=== PATIENT | male | born 1970 | race Hispanic/Latino ===

== ENCOUNTER 2017-07-18 23:39 | Emergency (ER) | payer BC ==
[~2017-07-18] VITALS: Ht 170.2 cm; Wt 104.8 kg
[2017-07-19] MEDS ORDERED: PANTOPRAZOLE 40 MG 10ML VIAL IV STA (00:13)
[2017-07-19] MEDS ORDERED: SODIUM CHLORIDE 0.9% 1000ML 1,000 ML IV STA (00:13)
[2017-07-19] MEDS ORDERED: PANTOPRAZOLE 40 MG 10ML VIAL ONE (00:14)
[2017-07-19] MEDS ORDERED: ONDANSETRON HCL 4 MG ORAL DISINTEGRATING TAB ONE (00:14)
[2017-07-19] MEDS ORDERED: SODIUM CHLORIDE 0.9% 1000ML 1,000 ML ONE (00:15)
[2017-07-19] MEDS ORDERED: ONDANSETRON HCL 4 MG ORAL DISINTEGRATING TAB PO ONE (00:15)
[2017-07-19 01:18] LABS: BASOPHILS # (AUTO) 0.1 (0.0-0.1); BASOPHILS % 0.5 % (0.0-1.0); EOSINOPHILS # (AUTO) 0.1 (0.0-0.4); EOSINOPHILS % 1.1 % (0.0-6.0); HEMATOCRIT 45.4 % (38.2-49.6); LYMPHOCYTES # (AUTO) 1.4 (1.0-3.2); LYMPHOCYTES % 14.7 % (18.0-39.1); MEAN CORPUSCULAR HEMOGLOBIN 28.6 pg (28-32); MEAN CORPUSCULAR VOLUME 86.5 fL (81-99); MONOCYTES # (AUTO) 0.6 (0.2-0.8); MONOCYTES % 6.4 % (4.4-11.3); NEUTROPHILS # (AUTO) 7.4 (2.1-6.9); PLATELET COUNT 320 x10e3/uL (140-360); RED BLOOD COUNT 5.25 x10e6/uL (4.3-5.7); RED CELL DISTRIBUTION WIDTH 14.4 % (11.7-14.4)
[2017-07-19 01:28] LABS: INR 0.98; PROTHROMBIN TIME 12.2 seconds (11.9-14.5)
[2017-07-19 01:38] LABS: ALANINE AMINOTRANSFERASE 22 IU/L (0-55); ALBUMIN/GLOBULIN RATIO 0.8 (0.8-2.0); ALKALINE PHOSPHATASE 71 IU/L (40-150); BLOOD UREA NITROGEN 23 mg/dL (7-26); BUN/CREATININE RATIO 16 (6-25); CALCIUM 9.3 mg/dL (8.4-10.2); CARBON DIOXIDE 24 mmol/L (22-29); CREATINE KINASE 217 IU/L (30-200); CREATININE, SERUM 1.41 mg/dL (0.72-1.25); EST GLOMERULAR FILTRATION RATE 55 ML/MIN (60-); GLUCOSE 267 mg/dL (74-118)
--- NOTE | 2017-07-19 01:40 | Diagnostic Imaging Report ---
CHEST SINGLE (PORTABLE), 07/19/2017 12:13 AM Technique: CHEST SINGLE (PORTABLE) Comparison: None available. Clinical history: \S\ELEV BG \[id number] \S\0105 Findings: See Impression Impression: 1. Mildly enlarged cardiac silhouette, accentuated by portable technique. 2. No consolidation or edema. 3. No pleural effusion or pneumothorax. Signed by: Dr Katherine Sanches MD on 07/19/2017 1:36 AM
[2017-07-19 01:50] LABS: ANION GAP 14.1 mmol/L (8-16); CHLORIDE 103 mmol/L (98-107); MAGNESIUM 2.1 MG/DL (1.3-2.1); POTASSIUM 4.1 mmol/L (3.5-5.1); SODIUM 136 mmol/L (136-145)
[2017-07-19] MEDS ORDERED: INSULIN LISPRO 100 UNIT/1 ML 3ML VIAL SQ STA (03:48)
[2017-07-19] MEDS ORDERED: SODIUM CHLORIDE 0.9% 500ML 500 ML IV ONE (04:00)
[2017-07-19 06:05] VITALS: BP 117/81
== END 2017-07-19 06:24 | disposition home or self-care (01) ==
LOC: ER 23:39
DX: R11.2 Nausea with vomiting, unspecified (principal); E11.65 Type 2 diabetes mellitus with hyperglycemia; Z96.41 Presence of insulin pump (external) (internal); K21.9 Gastro-esophageal reflux disease without esophagitis; Z88.8 Allergy status to other drugs, medicaments and biological substances
CPT/HCPCS: 36415; 71045; 80053; 82550; 82553; 82948; 83735; 84484; 85025; 85610; 85730; 93005; 96374; 99283; J7030; J7040; 36600

== ENCOUNTER 2017-12-10 05:05 | Inpatient (IN) | payer BC ==
[2017-12-09 11:34] LABS: BASOPHILS # (AUTO) 0.1 (0.0-0.1); BASOPHILS % 0.7 % (0.0-1.0); EOSINOPHILS # (AUTO) 0.4 (0.0-0.4); EOSINOPHILS % 4.4 % (0.0-6.0); HEMATOCRIT 44.7 % (38.2-49.6); HEMOGLOBIN 14.8 g/dL (14.0-18.0); LYMPHOCYTES # (AUTO) 2.1 (1.0-3.2); LYMPHOCYTES % 23.5 % (18.0-39.1); MEAN CORPUSCULAR HEMOGLOBIN 29.5 pg (28-32); MEAN CORPUSCULAR HGB CONC 33.1 g/dL (31-35); MONOCYTES # (AUTO) 0.7 (0.2-0.8); MONOCYTES % 8.4 % (4.4-11.3); NEUTROPHILS # (AUTO) 5.5 (2.1-6.9); NEUTROPHILS % 62.7 % (38.7-80.0); PLATELET COUNT 284 x10e3/uL (140-360); RED BLOOD COUNT 5.02 x10e6/uL (4.3-5.7); RED CELL DISTRIBUTION WIDTH 14.3 % (11.7-14.4)
[2017-12-09 12:08] LABS: ANION GAP 13.8 mmol/L (8-16); CALCIUM 9.6 mg/dL (8.4-10.2); CREATININE, SERUM 1.36 mg/dL (0.72-1.25); POTASSIUM 3.8 mmol/L (3.5-5.1)
[~2017-12-10] VITALS: Ht 180.3 cm; Wt 97.3 kg
[~2017-12-10 05:05] MED LIST: ANASTROZOLE1 MG PO; DIOVAN80 MG PO; HYDROXYZINE HCL25 MG PO; INSULIN PUMP; OMEPRAZOLE40 MG PO; RANITIDINE HCL150 MG PO; TESTOSTERONE
--- OUTSIDE RECORDS SUMMARY | 2017-12-10 05:16 | XMS REPORT ---
Author Author [facility] Address Unknown Phone Unavailable Care Team Providers Care Film Cleaner Name Role Phone Willow ENGLISH Unavailable Unavailable Problems This patient has no known problems. Allergies, Adverse Reactions, Alerts This patient has no known allergies or adverse reactions. Medications This patient has no known medications. Results Test Description Test Time Test Comments Text Results Atomic Results Result Comments CHEST SINGLE (PORTABLE) [place] [address] Patient Name: HARMAN FERREIRA MR #: [id number] : 1970 Age/Sex: 46/M Req #: [id number] Adm Physician: Ordered by: OSCAR ENGLISH MD Report #: [id number] Location: ER Room/Bed: Procedure: [id number] DX/CHEST SINGLE (PORTABLE) Exam Date: 07/19/17 Exam Time: 104 REPORT STATUS: Signed CHEST SINGLE (PORTABLE), 07/19/2017 12:13 AM Technique: CHEST SINGLE (PORTABLE) Comparison: None available. Clinical history: S ELEV BG S [id number] S 104 Findings: See Impression Impression: 1. Mildly enlarged cardiac silhouette, accentuated by portable technique. 2. No consolidation or edema. 3. No pleural effusion or pneumothorax. Signed by: Dr Jimenez Sanches MD on 07/19/2017 1:36 AM Dictated By: JIMENEZ SANCHES MD 5 Transcribed By: TRACY on 07/19/17135 COPY TO: OSCAR ENGLISH MD
[2017-12-10] MEDS ORDERED: CEFOXITIN SOD 1 GM VIAL ONE (05:17)
[2017-12-10] MEDS ORDERED: FAMOTIDINE 20 MG/2 ML VIAL IV ONE (06:34)
[2017-12-10] MEDS ORDERED: SCOPOLAMINE 1.5 MG PATCH ONE (06:47)
[2017-12-10] MEDS ORDERED: ACETAMINOPHEN 1000 MG/100 ML 100 ML IV ONE (06:47)
[2017-12-10] MEDS ORDERED: BUPIVACAINE HCL 0.5% INJ 30 ML VIAL INJ ONE (06:48)
[2017-12-10] MEDS ORDERED: NALOXONE HCL INJ 0.4 MG/ML AMP IV PRN (08:30)
[2017-12-10] MEDS ORDERED: ACETAMINOPHEN 1000 MG/100 ML IV PRN (08:30)
[2017-12-10] MEDS ORDERED: KETOROLAC TROMETHAMINE 30 MG/ML VIAL IV PRN (08:30)
[2017-12-10] MEDS ORDERED: DIPHENHYDRAMINE HCL INJ 50 MG/ML VIAL IM PRN (08:30)
[2017-12-10] MEDS ORDERED: HYDROMORPHONE 2MG/ML 2 MG/ML ML ONE (08:44)
[2017-12-10] MEDS: HYDROMORPHONE 0.2MG/ML-SOD CHL 30ML PCA SYRINGE IV PRN (08:52)
--- NOTE | 2017-12-10 09:13 | Operative Report ---
DATE OF PROCEDURE: December 10, 2017 PREOPERATIVE DIAGNOSIS: Dysplastic cecal polyp. POSTOPERATIVE DIAGNOSIS: Dysplastic cecal polyp. PROCEDURE: Laparoscopic-assisted right colon resection. BUYING AGENT: None. ANESTHESIA: General. INDICATIONS AND FINDINGS: The patient is a 47-year-old male, who previously had a colonoscopy, who had a large polyp removed from the cecum, was found to have high-grade dysplasia on pathology. At surgery, there was no mass palpable in the cecum. There was some area of induration at the site of the polypectomy site, which was removed. There were no enlarged lymph nodes noted. There was no mass in the liver. TECHNIQUE: After adequate general endotracheal anesthesia with the patient in supine position, the abdomen was prepped and draped in sterile fashion with Salina solution. Skin in the umbilicus was infiltrated with 0.5% Marcaine. An incision was made in the umbilicus. The abdominal wall was elevated, and Veress needle was introduced. Pneumoperitoneum was then created. A 5-mm trocar and cannula were then passed through this wound. Laparoscopic camera was introduced. Initial laparoscopy revealed no mass. There was no free fluid. The liver appeared normal. Stomach appeared normal, somewhat obscured by omentum. A 5-mm trocar and cannula were placed in the epigastrium and a second 5-mm trocar and cannula placed also in the right upper quadrant just to the right of midline. The right colon was mobilized by divided peritoneal attachments. Omentum was dissected away from the right transverse colon. Colon was mobilized completely from lateral to medial. Care was taken not to injure the ureter. Once the colon was completely mobilized, a transverse incision was made in the right upper quadrant just above the level of the umbilicus. The peritoneal cavity was entered. The colon into the wound. There was no mass palpable within the cecum. Terminal ileum was divided with ANGELA stapler. The ascending colon above the cecum just proximal to hepatic flexure was also divided with ANGELA stapler. The mesentery was then divided with LigaSure device and the specimen removed. The specimen was opened and there was area of induration and scarring suggesting where the polypectomy had done. This was just adjacent to the appendiceal orifice. Anastomosis was made between the terminal ileum and the colon with a ANGELA stapler and TL-60 stapler. The mesenteric defect was closed with 3-0 Vicryl. Hemostasis was seen to be adequate. The peritoneal cavity was irrigated with saline. All fluid aspirated and inspected for hemostasis, which was seen to be adequate. The fascia in the larger wound was closed with running suture of #1 PDS. Subcutaneous tissue was irrigated with saline. Skin to all wounds closed with naveed. Sterile dressings were applied to each wound. The patient tolerated the procedure well. Estimated blood loss was 75 mL. There were no complications. All counts were correct. The patient was taken to the recovery room in satisfactory condition. Job#: [id number]
[2017-12-10 10:24] VITALS: BP 135/73
[2017-12-10] MEDS: CEFOXITIN SODIUM 2 G/VIAL IV SCH ×2 (12:00→18:00)
[2017-12-10] MEDS ORDERED: CEFOXITIN 2GM/ D5W 50ML 50 ML IV SCH (12:00)
[2017-12-10 12:34] VITALS: BP 111/58
[2017-12-10] MEDS ORDERED: CEFOXITIN SOD 1 GM VIAL IV SCH (14:00)
--- NOTE | 2017-12-10 14:55 | Consultation ---
DATE OF CONSULTATION: December 10, 2017 REFERRING PHYSICIAN: Dr. Madison REASON FOR CONSULTATION: Postop diabetes management. CHIEF COMPLAINT: Cecal polyp with high-grade dysplasia. HPI: This is a 47-year-old male with insulin pump. He recently had a colonoscopy done. A cecal polyp was removed. He subsequently was found to have high-grade dysplasia. The patient was electively admitted very early this morning for laparoscopic-assisted right colon resection by Dr. Madison. Currently, the patient is on a MORTAR MAKER pump. The patient is still having right lower quadrant surgical pain. In addition, he said about 2 hours ago he also developed some right flank pain. Denies any chest pain or shortness of breath. No nausea. No vomiting. Currently, his insulin pump is turned off. The patient is very thirsty at this time. PAST MEDICAL AND SURGICAL HISTORY 1. Diabetes. 2. GERD. 3. Previous orthopedic surgery. MEDICATIONS: Please see medication reconciliation form. ALLERGIES: REGLAN AND LACTULOSE. SOCIAL HISTORY: Does not smoke. FAMILY HISTORY: Colon cancer. REVIEW OF SYSTEMS: A 10-point review of systems reviewed. Nothing else is significant other than what is stated in HPI. PHYSICAL EXAMINATION VITALS: Temperature 96.7, pulse 98, blood pressure 111/58, respiratory rate 16. GENERAL: In pain. HEENT: Oropharynx is clear. Anicteric. NECK: Supple. LUNGS: Clear. HEART: Regular rate and rhythm. Normal S1 and S2. ABDOMEN: Soft. Tender. Decreased bowel sounds. : Deferred. MUSCULOSKELETAL: Painless range of motion. SKIN: Dry. No rash. PSYCHIATRIC: Normal affect. NEUROLOGIC: Alert and oriented x3. Cranial nerves II through XII grossly intact. LABORATORY: Creatinine 1.36 with GFR of 57. Sugar anywhere between 126 and 258. CBC is unremarkable. ASSESSMENT AND PLAN 1. Diabetes. Will continue to have his insulin pump turned off since he is n.p.o. Will start him on a very low dose of Humalog sliding scale. 2. Postoperative day #0 for laparoscopic-assisted right colon resection. Will continue MORTAR MAKER pump. Keep the patient n.p.o. and monitor for bowel function. 3. Chronic kidney disease, stage 3, likely due to diabetes. Will repeat his creatinine in the morning. Will also check an A1c. 4. GI and DVT prophylaxis. Pepcid IV and sequential compression devices only. No chemical due to recent surgery. Thank you very much for this consultation. I will continue to follow with you closely. Please call with any questions. Job#: [id number] KATELIN
[2017-12-10] MEDS ORDERED: INSULIN LISPRO 100 UNIT/1 ML 3ML VIAL SQ SCH (16:30)
[2017-12-10 16:34] VITALS: BP 106/59
[2017-12-10] MEDS: FAMOTIDINE 20 MG/2 ML VIAL IV SCH (16:37)
[2017-12-10] MEDS: INSULIN LISPRO 100 UNIT/1 ML 3ML VIAL SQ SCH ×2 (16:41→21:44)
[2017-12-10] MEDS ORDERED: MIDAZOLAM HCL 2 MG/2 ML VIAL ONE (18:49)
[2017-12-10] MEDS ORDERED: FENTANYL CITRATE/PF 100MCG/2 ML INJ ONE (18:49)
[2017-12-10] MEDS ORDERED: LIDOCAINE HCL 2% LOCAL INJ 5 ML SDV VIAL INJ ONE (19:15)
[2017-12-10] MEDS ORDERED: SEVOFLURANE INHAL SOLN 250 ML PEN BTL ONE (19:15)
[2017-12-10] MEDS ORDERED: ONDANSETRON HCL INJ 2 MG/ML VIAL ONE (19:15)
[2017-12-10] MEDS ORDERED: PROPOFOL IV EMULSION 10 MG/ML 20 ML VIAL ONE (19:15)
[2017-12-10] MEDS ORDERED: DEXAMETHASONE SOD PHOS INJ 4 MG/ML VIAL ONE (19:15)
[2017-12-10] MEDS ORDERED: EYE LUBRICANT OPTH OINT 3.5GM TUBE OP ONE (19:15)
[2017-12-10] MEDS ORDERED: ROCURONIUM BROMIDE 10 MG/ML 5ML VIAL ONE (19:15)
[2017-12-10] MEDS ORDERED: GLYCOPYRROLATE INJ 1MG/ 5 ML SYR ONE (19:15)
[2017-12-10] MEDS ORDERED: NEOSTIGMINE 5 MG/5ML SYR ONE (19:15)
[2017-12-10] MEDS: DEXTROSE 5%/LACTATED RINGERS 1,000 ML IV SCH ×2 (19:22→21:44)
[2017-12-10 20:00] VITALS: BP 109/60
[2017-12-10 22:37] VITALS: BP 109/60
[2017-12-11] VITALS (7 sets, daily range): BP systolic 101–152; BP diastolic 59–83
[2017-12-11] MEDS: CEFOXITIN SODIUM 2 G/VIAL IV SCH (00:10)
[2017-12-11 05:43] LABS: BASOPHILS % 0.3 % (0.0-1.0); EOSINOPHILS % 0.2 % (0.0-6.0); HEMATOCRIT 39.2 % (38.2-49.6); HEMOGLOBIN 13.1 g/dL (14.0-18.0); LYMPHOCYTES # (AUTO) 1.3 (1.0-3.2); LYMPHOCYTES % 11.2 % (18.0-39.1); MEAN CORPUSCULAR HEMOGLOBIN 29.8 pg (28-32); MEAN CORPUSCULAR HGB CONC 33.4 g/dL (31-35); MEAN CORPUSCULAR VOLUME 89.3 fL (81-99); MONOCYTES # (AUTO) 1.2 (0.2-0.8); MONOCYTES % 10.5 % (4.4-11.3); NEUTROPHILS # (AUTO) 9.1 (2.1-6.9); NEUTROPHILS % 77.5 % (38.7-80.0); PLATELET COUNT 291 x10e3/uL (140-360); RED BLOOD COUNT 4.39 x10e6/uL (4.3-5.7); RED CELL DISTRIBUTION WIDTH 14.5 % (11.7-14.4)
[2017-12-11 06:11] LABS: ANION GAP 10.3 mmol/L (8-16); CALCIUM 8.5 mg/dL (8.4-10.2); CREATININE, SERUM 1.33 mg/dL (0.72-1.25); POTASSIUM 4.3 mmol/L (3.5-5.1)
[2017-12-11] MEDS: DEXTROSE 5%/LACTATED RINGERS 1,000 ML IV SCH (07:08)
[2017-12-11] MEDS: INSULIN LISPRO 100 UNIT/1 ML 3ML VIAL SQ SCH ×4 (08:00→20:50)
[2017-12-11] MEDS: FAMOTIDINE 20 MG/2 ML VIAL IV SCH ×2 (08:37→16:25)
[2017-12-11] MEDS: SODIUM CHLORIDE 0.9% 1000ML 1,000 ML IV SCH ×2 (10:45→20:30)
[2017-12-11] MEDS: HYDROMORPHONE 0.2MG/ML-SOD CHL 30ML PCA SYRINGE IV PRN (13:20)
[2017-12-11] MEDS: ONDANSETRON HCL INJ 2 MG/ML VIAL IV PRN (18:11)
[2017-12-12] VITALS (7 sets, daily range): BP systolic 135–150; BP diastolic 76–85
--- NOTE | 2017-12-12 03:04 | Progress Note ---
DATE: December 11, 2017 INTERNAL MEDICINE PROGRESS NOTE This is coverage for Dr. Osman Machuca. SUBJECTIVE: Mr. Sandoval was seen and examined at bedside. He is postoperative day 1. He started clear liquid diet. No flatus yet. No bowel movement yet. He is remaining on IV fluids, and normal saline is being converted to 100 mL per hour. REVIEW OF SYSTEMS: No headaches, no nosebleeds. OBJECTIVE: VITAL SIGNS: Afebrile, vital signs noted per electronic record. GENERAL: No acute distress, alert and calm. HEENT: Normocephalic, atraumatic. NECK: Supple. Throat midline. LUNGS: Bilateral air entry, clear. CARDIOVASCULAR: S1, S2. No murmurs, rubs, or gallops. ABDOMEN: Soft, nontender. EXTREMITIES: No clubbing, no cyanosis, there is no edema. INTEGUMENT: No rash, no purpura. IMPRESSIONS AND PLAN: 1. Postoperative state, status post right colonic resection. 2. Diabetes. 3. Chronic kidney disease. 4. Gastroesophageal reflux disease. At this time, will continue to use sliding scale insulin and cover him as his diet increases. Diet has already been increased to clear liquids. We do not intend to use the insulin pump for now as not have adequate control of the dispensing of medication through this. Repeat blood work in the morning and ensure kidneys are stable. Job#: [id number]
[2017-12-12 05:46] LABS: HEMATOCRIT 40.5 % (38.2-49.6); HEMOGLOBIN 13.2 g/dL (14.0-18.0); MEAN CORPUSCULAR HEMOGLOBIN 29.6 pg (28-32); MEAN CORPUSCULAR HGB CONC 32.6 g/dL (31-35); MEAN CORPUSCULAR VOLUME 90.8 fL (81-99); PLATELET COUNT 281 x10e3/uL (140-360); RED BLOOD COUNT 4.46 x10e6/uL (4.3-5.7); RED CELL DISTRIBUTION WIDTH 14.2 % (11.7-14.4)
[2017-12-12 06:05] LABS: ANION GAP 11.4 mmol/L (8-16); BLOOD UREA NITROGEN 17 mg/dL (7-26); BUN/CREATININE RATIO 14 (6-25); CALCIUM 8.6 mg/dL (8.4-10.2); CARBON DIOXIDE 29 mmol/L (22-29); CHLORIDE 95 mmol/L (98-107); CREATININE, SERUM 1.18 mg/dL (0.72-1.25); EST GLOMERULAR FILTRATION RATE > 60 ML/MIN (60-); GLUCOSE 229 mg/dL (74-118); POTASSIUM 4.4 mmol/L (3.5-5.1); SODIUM 131 mmol/L (136-145)
[2017-12-12] MEDS: SODIUM CHLORIDE 0.9% 1000ML 1,000 ML IV SCH ×2 (06:30→16:40)
[2017-12-12] MEDS: ONDANSETRON HCL INJ 2 MG/ML VIAL IV PRN ×2 (06:31→08:11)
[2017-12-12] MEDS ORDERED: MAGNESIUM/ALUMINUM/SIMETHICONE 30 ML UDC PO PRN (07:30)
[2017-12-12] MEDS ORDERED: HYDROXYZINE HCL 25 MG TAB PO SCH (07:30)
[2017-12-12] MEDS: HYDROMORPHONE 0.2MG/ML-SOD CHL 30ML PCA SYRINGE IV PRN (07:59)
[2017-12-12] MEDS: INSULIN LISPRO 100 UNIT/1 ML 3ML VIAL SQ SCH ×4 (08:09→20:34)
[2017-12-12] MEDS: FAMOTIDINE 20 MG/2 ML VIAL IV SCH ×2 (08:10→16:40)
[2017-12-12] MEDS: VALSARTAN 80 MG TAB PO SCH (08:11)
[2017-12-12] MEDS: PANTOPRAZOLE SOD 40 MG TABEC PO SCH (08:11)
[2017-12-12 09:13] LABS: EOSINOPHILS % (MANUAL) 1 % (0-7); LYMPHOCYTES % (MANUAL) 18 % (19-48); MONOCYTES % (MANUAL) 10 % (3.4-9.0); NEUTROPHILS % (MANUAL) 63 % (40-74); PLATELET ESTIMATE ADEQUATE; PLATELET MORPHOLOGY COMMENT FEW LARGE; RBC MORPHOLOGY COMMENT NORMAL
[2017-12-13] VITALS (8 sets, daily range): BP systolic 113–147; BP diastolic 53–83
--- NOTE | 2017-12-13 01:42 | Progress Note ---
DATE: No Dictation 00:10 seconds. Job#: [id number]
--- NOTE | 2017-12-13 01:49 | Progress Note ---
DATE: December 12, 2017 INTERNAL MEDICINE PROGRESS NOTE Coverage for Dr. Machuca. SUBJECTIVE: Mr. Sandoval was seen and examined at bedside. He took clear liquid diet in small amounts. He is on CERTIFIED INCOME TAX PREPARER Dilaudid. Got some Atarax for itching. Some symptomatic GERD. He walked. REVIEW OF SYSTEMS: No headaches, no bleeding. OBJECTIVE: VITAL SIGNS: Afebrile, vital signs noted per electronic record. GENERAL: No acute distress, alert and calm. HEENT: Normocephalic, atraumatic. NECK: Supple. Throat midline. LUNGS: Bilateral air entry, clear. CARDIOVASCULAR: S1, S2. No murmurs, rubs, or gallops. ABDOMEN: Soft, nontender. He is with postoperative state in abdomen. INTEGUMENT: No purpura, no rash. EXTREMITIES: No clubbing, no cyanosis. LABS: 4.4 potassium, 131 sodium, 17 BUN, 1.2 creatinine. IMPRESSIONS AND PLAN: 1. Gastroesophageal reflux disease. 2. Postoperative state, status post right colonic resection. 3. Cecal polyps, high-grade dysplasia, status post removal. 4. Diabetes. Proton pump inhibitor was added to Pepcid. Physical therapy and occupational therapy will be done to enhance his mobilization. He should continue his home continuous positive airway pressure for his obstructive sleep apnea. Continue supportive care. Job#: [id number]
[2017-12-13] MEDS: SODIUM CHLORIDE 0.9% 1000ML 1,000 ML IV SCH ×2 (02:30→10:44)
[2017-12-13] MEDS: HYDROMORPHONE 0.2MG/ML-SOD CHL 30ML PCA SYRINGE IV PRN (04:08)
[2017-12-13 05:55] LABS: HEMOGLOBIN 13.4 g/dL (14.0-18.0); MEAN CORPUSCULAR HEMOGLOBIN 29.8 pg (28-32); MEAN CORPUSCULAR HGB CONC 32.7 g/dL (31-35); MEAN CORPUSCULAR VOLUME 91.1 fL (81-99); PLATELET COUNT 265 x10e3/uL (140-360); RED CELL DISTRIBUTION WIDTH 13.9 % (11.7-14.4)
[2017-12-13 06:21] LABS: ANION GAP 12.2 mmol/L (8-16); BLOOD UREA NITROGEN 14 mg/dL (7-26); BUN/CREATININE RATIO 11 (6-25); CALCIUM 8.6 mg/dL (8.4-10.2); CARBON DIOXIDE 28 mmol/L (22-29); CHLORIDE 98 mmol/L (98-107); CREATININE, SERUM 1.24 mg/dL (0.72-1.25); EST GLOMERULAR FILTRATION RATE > 60 ML/MIN (60-); GLUCOSE 218 mg/dL (74-118); POTASSIUM 4.2 mmol/L (3.5-5.1); SODIUM 134 mmol/L (136-145)
[2017-12-13] MEDS ORDERED: HYDROMORPHONE 0.2MG/ML-SOD CHL 30ML PCA SYRINGE IV PRN (06:30)
[2017-12-13] MEDS: INSULIN LISPRO 100 UNIT/1 ML 3ML VIAL SQ SCH ×3 (07:30→16:30)
[2017-12-13] MEDS: VALSARTAN 80 MG TAB PO SCH (09:00)
[2017-12-13] MEDS: PANTOPRAZOLE SOD 40 MG TABEC PO SCH (09:00)
[2017-12-13] MEDS: FAMOTIDINE 20 MG/2 ML VIAL IV SCH ×2 (09:00→18:55)
[2017-12-13 09:16] LABS: EOSINOPHILS % (MANUAL) 2 % (0-7); LYMPHOCYTES % (MANUAL) 23 % (19-48); MONOCYTES % (MANUAL) 6 % (3.4-9.0); MYELOCYTES % (MANUAL) 1 % (0-0); NEUTROPHILS % (MANUAL) 62 % (40-74); PLATELET ESTIMATE ADEQUATE; PLATELET MORPHOLOGY COMMENT NORMAL; RBC MORPHOLOGY COMMENT NORMAL
[2017-12-14] MEDS: ONDANSETRON HCL INJ 2 MG/ML VIAL IV PRN (01:26)
[2017-12-14] MEDS ORDERED: DEXTROSE 50% SYRINGE 50 ML IV PRN (03:15)
[2017-12-14 04:00] VITALS: BP_SYST 131; BP_SYST 136; BP_DIAS 74; BP_DIAS 79
--- NOTE | 2017-12-14 04:00 | Progress Note ---
DATE: December 13, 2017 INTERNAL MEDICINE PROGRESS NOTE Coverage for Dr. Machuca. SUBJECTIVE: Mr. Sandoval was seen and examined at bedside. He ate well. He was able to walk. He has rare flatus. He did have one bowel movement yesterday. He remains on WARD ASSISTANT Dilaudid. Using incentive spirometry. REVIEW OF SYSTEMS: No headaches, no bleeding. OBJECTIVE VITAL SIGNS: Afebrile, vital signs noted per electronic record. GENERAL: No acute distress, alert and calm. HEENT: Normocephalic, atraumatic. NECK: Supple. Throat midline. LUNGS: Bilateral air entry, clear. CARDIOVASCULAR: S1 and S2. No murmurs, rubs, or gallops. ABDOMEN: Soft and nontender, postoperative. INTEGUMENT: No rash. No purpura. LABS: BUN 14, 1.2 creatinine. White count 11, hematocrit 41, and 265 platelets. IMPRESSION AND PLAN 1. Cecal polyp with high-grade dysplasia. 2. Postoperative state, status post right colonic dissection. 3. Gastroesophageal reflux disease. 4. Diabetes. Continue local wound care with the horizontal cut in his center of abdomen. Continue to ambulate the patient. WARD ASSISTANT Dilaudid for pain still. Continue follow up as he is now on full diet. Continue coverage of his diabetes as his insulin pump is still turned off for now. Job#: [id number] HENRY
[2017-12-14] MEDS ORDERED: INSULIN LISPRO 100 UNIT/1 ML 3ML VIAL SQ SCH (07:30)
[2017-12-14 08:37] VITALS: BP 131/74
[2017-12-14] MEDS: FAMOTIDINE 20 MG/2 ML VIAL IV SCH (08:37)
[2017-12-14 08:50] VITALS: BP 131/82
[2017-12-14] MEDS: VALSARTAN 80 MG TAB PO SCH (09:00)
[2017-12-14] MEDS: PANTOPRAZOLE SOD 40 MG TABEC PO SCH (09:00)
[2017-12-14 13:15] VITALS: BP 128/67
[2017-12-14] MEDS ORDERED: NORCO 7.5-3251 EACH PO (14:24)
--- NOTE | 2017-12-15 02:01 | Discharge Summary ---
ADMISSION DIAGNOSIS: Dysplastic cecal polyp. DISCHARGE DIAGNOSIS: Dysplastic cecal polyp. PRINCIPAL PROCEDURE: Laparoscopic-assisted right colon resection. HISTORY OF PRESENT ILLNESS: Patient is a 47-year-old male who had a colonoscopy, had a large polyp in the cecum, which was removed. Pathology reveals high-grade dysplasia. HOSPITAL COURSE: Patient admitted to the hospital, underwent surgery on the same day of his admission. He had laparoscopic-assisted right colon resection. Postoperatively, the patient was receiving consultation by internal medicine for management of his diabetes. He was started on liquid diet on the first postop day, which he tolerated without problem. Diet was advanced. Bowel function returned to normal. Wounds have been clean. He was out of bed and ambulating. He was discharged home on the third postop day. At the time of discharge, he was afebrile. Wound was clean. Tolerating diet. DISCHARGE MEDICATIONS: [place] for pain. He will continue all his same home medications as he took prior to admission. FOLLOW-UP: He will follow up with Dr. Madison approximately 1 week after discharge. He was sent home in satisfactory condition, on diabetic diet. Job#: [id number] KALPESH
== END 2017-12-14 15:15 | disposition home or self-care (01) | DRG 331 ==
LOC: OR 05:05 → PACU V 09:22 → MED/SURG 09:49
PROVIDERS: ADMIT Surgery; ATTEND Surgery
PROC: 0DTF0ZZ Resection of Right Large Intestine, Open Approach (ICD-10-PCS; principal; 2017-12-10 06:55)
DX: D12.0 Benign neoplasm of cecum (principal); E11.22 Type 2 diabetes mellitus with diabetic chronic kidney disease; K21.9 Gastro-esophageal reflux disease without esophagitis; Z79.4 Long term (current) use of insulin; N18.3 Chronic kidney disease, stage 3 (moderate); Z80.0 Family history of malignant neoplasm of digestive organs; Z83.3 Family history of diabetes mellitus; Z82.49 Family history of ischemic heart disease and other diseases of the circulatory system; G47.33 Obstructive sleep apnea (adult) (pediatric); Z88.8 Allergy status to other drugs, medicaments and biological substances
CPT/HCPCS: 36415; 80048; 82948; 83036; 85007; 85025; 85027; 86850; 86900; 88307; 93005; J0694; J1100; J2001; J2250; J2405; J3410; J7030

== ENCOUNTER 2019-10-14 17:50 | Emergency (ER) | payer OTHER ==
[~2019-10-14] VITALS: Ht 170.2 cm; Wt 106.1 kg
[~2019-10-14 17:50] MED LIST changes: +APPLE CIDER VI300 MG PO; +COQ1050 MG PO; +FAMOTIDINE40 MG PO; +INSULIN PUMP-NOVOLOG SC; +MAGNESIUM PO; +MULTI-VITAMIN1 EACH PO; +NORCO 7.5-3251 EACH PO; +SIMVASTATIN20 MG PO; +ZINC PO; +[UNRECOGNIZED DRUG - OTHER] PO
[2019-10-14 18:04] LABS: BASOPHILS # (AUTO) 0.1 (0.0-0.1); BASOPHILS % 0.9 % (0.0-1.0); EOSINOPHILS # (AUTO) 0.3 (0.0-0.4); EOSINOPHILS % 3.7 % (0.0-6.0); HEMATOCRIT 39.6 % (38.2-49.6); HEMOGLOBIN 12.9 g/dL (14.0-18.0); LYMPHOCYTES # (AUTO) 2.2 (1.0-3.2); LYMPHOCYTES % 23.5 % (18.0-39.1); MEAN CORPUSCULAR HEMOGLOBIN 29.3 pg (28-32); MEAN CORPUSCULAR HGB CONC 32.6 g/dL (31-35); MEAN CORPUSCULAR VOLUME 89.8 fL (81-99); MONOCYTES # (AUTO) 0.8 (0.2-0.8); MONOCYTES % 8.3 % (4.4-11.3); NEUTROPHILS # (AUTO) 5.9 (2.1-6.9); NEUTROPHILS % 63.1 % (38.7-80.0); PLATELET COUNT 328 x10e3/uL (140-360); RED BLOOD COUNT 4.41 x10e6/uL (4.3-5.7)
--- NOTE | 2019-10-14 18:06 | Emergency Department Note ---
History of Present Illnes History of Present Illness Chief Complaint: Chest Pain History of Present Illness This is a 49 year old male Chief Complaint Comment PATIENT IN FROM HOME VIA [facility] - PATIENT STATES HE IS SUPPOSED TO HAVE A CARDIAC CATH HERE TOMORROW AND WAS OUT WALKING AROUND THE NEIGHBORHOOD AND THEN FELL IN THE YARD. STATES HE BEGAN HAVING NAUSEA, VOMITING, AND CHEST PAIN. PATIENT GIVEN 2 SL NITRO AND 324 MG ASPIRIN PRIOR TO ARRIVAL. 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 Arrival Mode: [facility] EMS Treatment RELAY TECHNICIAN: IV, Aspirin Additional Treatment RELAY TECHNICIAN: 2 SL NITRO; 324 MG ASPIRIN Hand Compositor Required: No Location: Chest Quality: Sharp Radiation: Reports other (Jaw) Severity: moderate Onset quality: sudden Duration (how long): hour(s) (1) Timing of current episode: unable to specify Progression: improving Chronicity: recurrent Context: Denies recent illness, Denies recent surgery Relieving factors: none Exacerbating factors: none Associated symptoms: Reports denies other symptoms Treatments prior to arrival: none Past Medical/Family History Physician Review I have reviewed the patient's past medical and family history. Any updates have been documented here. Past Medical History Recent Fever: No Clinical Suspicion of Infectio: No New/Unexplained Change in Ment: No Past Medical History: Hypertension, Diabetes, Anxiety, GERD Other Medical History: Type I Diabetes GERD Other Surgery: TORN ACL, TORN RETINA Social History Physically hurt or threatened: No Other Last Tetanus: >5yrs Review of Systems Review of Systems Constitutional: Reports no symptoms EENTM: Reports no symptoms Cardiovascular: Reports as per HPI, Reports chest pain Respiratory: Reports no symptoms Gastrointestinal: Reports no symptoms Genitourinary: Reports no symptoms Musculoskeletal: Reports no symptoms Integumentary: Reports no symptoms Neurological: Reports no symptoms Psychological: Reports no symptoms Endocrine: Reports no symptoms Hematological/Lymphatic: Reports no symptoms Physical Exam Related Data Allergies: Coded Allergies: metoclopramide (Verified Allergy, Mild, 03/21/09) melatonin (Verified Allergy, Unknown, 10/13/19) pioglitazone (Verified Allergy, Unknown, 12/11/17) Triage Vital Signs Vital Signs Date Time Temp Pulse Resp B/P (MAP) Pulse Ox O2 Delivery O2 Flow Rate FiO2 10/14/19 17:50 Room Air Vital signs reviewed: Yes Physical Exam CONSTITUTIONAL Constitutional: Present well-developed, Present well-nourished HENT HENT: Present normocephalic, Present atraumatic, Present oropharynx clear/moist, Present nose normal HENT L/R: Present left ext ear normal, Present right ext ear normal EYES Eyes: Reports PERRL, Reports conjunctivae normal NECK Neck: Present ROM normal PULMONARY Pulmonary: Present effort normal, Present breath sounds normal CARDIOVASCULAR Cardiovascular: Present regular rhythm, Present heart sounds normal, Present capillary refill normal, Present normal rate GASTROINTESTINAL Abdominal: Present soft, Present nontender, Present bowel sounds normal GENITOURINARY Genitourinary: Present exam deferred SKIN Skin: Present warm, Present dry MUSCULOSKELETAL Musculoskeletal: Present ROM normal NEUROLOGICAL Neurological: Present alert, Present oriented x 3, Present no gross motor or sensory deficits PSYCHOLOGICAL Psychological: Present mood/affect normal, Present judgement normal Results Laboratory Laboratory Laboratory Tests Test 10/14/19 17:56 Lab results reviewed: Yes Imaging Imaging results reviewed: Yes Assessment & Plan Medical Decision Making MDM 49-year-old male presents for exertional chest pain. States he has had a stress test recently and was scheduled for cardiac catheterization tomorrow but this was canceled. He states the pain is largely non-now. He was given aspirin and nitroglycerin prior to arrival. Initial differential includes ACS versus pneumonia versus possible skeletal pain. Critical pulmonary workup shows normal cardiac enzymes and is otherwise unremarkable. Repeat troponin additionally is unremarkable. His chest pain does not appear to be cardiac in nature. Doubt emergent process at this time. I discussed results patient as well as expected disease time course and management. They will follow up with their primary care provider or return to the emergency department for new or worsening symptoms. Patient's appropriate for discharge. Part of this note was dictated with Tyrone and is subject to recognition errors. Reassessment Reassessment time: 18:06 Reassessment Well appearing, NAD Assessment & Plan Final Impression: (1) Chest pain Depart Disposition: HOME, SELF-CARE Last Vital Signs Date Time Temp Pulse Resp B/P (MAP) Pulse Ox O2 Delivery O2 Flow Rate FiO2 10/14/19 17:50 Room Air Home Meds Reported Medications [Vit C-Probiotic] No Conflict Check, 3 TAB.CHEW PO DAILY 10/13/19 Ubidecarenone (Coq10) 50 Mg Tab.chew, 100 MG PO DAILY 10/13/19 [Magnesium] No Conflict Check, 100 MG PO HS 8/25/20 [Zinc] No Conflict Check, 50 MG PO HS 10/13/19 Cider Vinegar (APPLE CIDER VINEGAR) 300 Mg Tablet, 1 TAB.CHEW PO DAILY 10/13/19 Multivitamin (MULTI-VITAMIN DAILY) 1 Each Tablet, 1 TAB.CHEW PO DAILY 10/13/19 Simvastatin (SIMVASTATIN) 20 Mg Tablet, 20 MG PO HS, EA 10/13/19 Famotidine (FAMOTIDINE) 40 Mg Tablet, 80 MG PO DAILY 10/13/19 [Insulin Pump-Novolog] No Conflict Check, SC UD 10/13/19 Valsartan (DIOVAN) 80 Mg Tab, 80 MG PO DAILY, TAB 12/09/17 Omeprazole (OMEPRAZOLE) 40 Mg Capsule.dr, 40 MG PO DAILY 12/09/17 Discontinued Reported Medications Hydrocodone Bit/Acetaminophen (NORCO 7.5-325 TABLET) 1 Each Tablet, 1 TAB PO Q4HR PRN for PAIN, TAB 12/14/17 [Insulin Pump] No Conflict Check 12/09/17 [Testosterone] No Conflict Check 12/09/17 Anastrozole (ANASTROZOLE) 1 Mg Tablet, 1 MG PO 48HRS AFTER SHOT 12/09/17 Hydroxyzine Hcl (HYDROXYZINE HCL) 25 Mg Tablet, 25 MG PO PRN MDD 50mg, #30 TAB Take 1 tablet by mouth daily for anxiety; if anxiety unrelieved in 30 min, may repeat once. 12/09/17 Ranitidine Hcl (RANITIDINE HCL) 150 Mg Tablet, 150 MG PO DAILY 12/09/17 GUILLERMO SMITH MD Oct 14, 2019 18:06
--- OUTSIDE RECORDS SUMMARY | 2019-10-14 18:07 | XMS REPORT | Continuity of Care Document ---
Author Author [facility] t Organization [facility] Address [address] [place] [address] Phone Unavailable Care Team Providers Care Hr Consultant Name Role Phone BRAXTON HEARD DO PCP Willow ENGLISH Attphys Unavailable Payers Payer Name Policy Type Policy Number Effective Date Expiration Date S brea [employer] [place] P[place] [id number] 2017 00:00:00 [facility] Problems This patient has no known problems. Allergies, Adverse Reactions, Alerts Allergy Name Allergy Type Status Severity Reaction(s) Onset Date Inacti ve Date Treating Clinician Comments Source metoclopramide DA Active SV 2019-07-25 00:00:00 [facility] melatonin DA Active SV 2019-07-25 00:00:00 [facility] Lactulose Allergy to Substance Active 2017-07-19 00:00:00 [facility] metoclopramide DA Active SV 2013-08-18 00:00:00 [facility] Metoclopramide Allergy to Substance Active Mild 2009-03-21 00:00 :00 [facility] Medications This patient has no known medications. Procedures This patient has no known procedures. Encounters Start Date/Time End Date/Time Encounter Type Admission Type [facility] Care Department Encounter ID Source 2017-07-18:39:00 2017-07-19 06:24:00 Departed Emergency Room [address] [facility] [id number] [facility] Results Test Description Test Time Test Comments Results Result Comments Source BASIC METABOLIC PANEL 2019-07-25 08:08:00 Test Item SODIUM (test code = NA) 139 mEq/L 134-147 N POTASSIUM (test code = K) 3.9 mEq/L 3.4-5.0 N CHLORIDE (test code = CL) 107 mEq/L 100-108 N CARBON DIOXIDE (test code = CO2) 27 mEq/L 21-33 N ANION GAP (test code = GAP) 9 0-20 N GLUCOSE (test code = GLU) 215 mg/dL 70-110 H BLOOD UREA NITROGEN (test code = BUN) 21 mg/dL 7-18 H GLOMERULAR FILTRATION RATE (test code = GFR) 50.4 95-105 L Units of measure = ml/min/1.73 m2 CREATININE (test code = CREAT) 1.5 mg/dL 0.6-1.3 H CALCIUM (test code = CA) 8.2 mg/dL 8.0-10.5 N HEPATIC FUNCTION [id number] 08:08:00* Test Item Value Reference Range Interpretation Comments TOTAL PROTEIN (test code = PROT) 6.7 g/dL 6.4-8.2 N ALBUMIN (test code = ALB) 2.60 g/dL 3.4-5.0 L BILIRUBIN TOTAL (test code = BILT) 0.3 MG/DL <1.5 N BILIRUBIN DIRECT (test code = BILD) < 0.10 MG/DL 0.0-0.30 N BILIRUBIN INDIRECT (test code = BILIND) 0.20 MG/DL SGOT/AST (test code = AST) 25 IUnit/L 15-37 N SGPT/ALT (test code = ALT) 35 IUnit/L 15-65 N ALKALINE PHOSPHATASE TOTAL (test code = ALKP) 68 IUnit/L 20-125 N [id number] 08:08:00* Test Item Value Reference Range Interpretation Comments LIPASE (test code = LIP) 215 IUnit/L 73-393 N [id number] 08:08:00* Test Item Value Reference Range Interpretation Comments TROPONIN-I (test code = TROPI) < 0.015 ng/mL 0.000-0.045 N Negative: <= 0.045 Positive: >= 0.046 Correlation with serial results, other cardiac markers andclinical findings is necessary to determine the clinicalsignificance of this result. Results using different methodologies should not be comparedto one another as quantitative results may vary by method. BASIC METABOLIC [id number] 08:06:00* Test Item Value Reference Range Interpretation Comments SODIUM (test code = NA) mEq/L 134-147 POTASSIUM (test code = K) mEq/L 3.4-5.0 CHLORIDE (test code = CL) mEq/L 100-108 CARBON DIOXIDE (test code = CO2) mEq/L 21-33 ANION GAP (test code = GAP) 0-20 GLUCOSE (test code = GLU) mg/dL 70-110 BLOOD UREA NITROGEN (test code = BUN) mg/dL 7-18 GLOMERULAR FILTRATION RATE (test code = GFR) 95-105 CREATININE (test code = CREAT) mg/dL 0.6-1.3 CALCIUM (test code = CA) mg/dL 8.0-10.5 HEPATIC FUNCTION [id number] 08:06:00* Test Item Value Reference Range Interpretation Comments TOTAL PROTEIN (test code = PROT) g/dL 6.4-8.2 ALBUMIN (test code = ALB) g/dL 3.4-5.0 BILIRUBIN TOTAL (test code = BILT) MG/DL <1.5 BILIRUBIN DIRECT (test code = BILD) MG/DL 0.0-0.30 SGOT/AST (test code = AST) IUnit/L 15-37 SGPT/ALT (test code = ALT) IUnit/L 15-65 ALKALINE PHOSPHATASE TOTAL (test code = ALKP) IUnit/L 20-125 [id number] 08:06:00* Test Item Value Reference Range Interpretation Comments LIPASE (test code = LIP) IUnit/L 73-393 [id number] 08:06:00* Test Item Value Reference Range Interpretation Comments TROPONIN-I (test code = TROPI) < 0.015 ng/mL 0.000-0.045 N Negative: <= 0.045 Positive: >= 0.046 Correlation with serial results, other cardiac markers andclinical findings is necessary to determine the clinicalsignificance of this result. Results using different methodologies should not be comparedto one another as quantitative results may vary by method. CBC W/AUTO [id number] 07:51:00* Test Item Value Reference Range Interpretation Comments WHITE BLOOD CELL (test code = WBC) 10.51 x10 3/uL 4.5-11.0 N RED BLOOD CELL (test code = RBC) 4.73 x10 6/uL 4.00-5.60 N HEMOGLOBIN (test code = HGB) 14.4 g/dL 12.5-16.9 N HEMATOCRIT (test code = HCT) 44.6 % 37.5-50.7 N MEAN CELL VOLUME (test code = MCV) 94.3 fL 81.0-99.0 N MEAN CELL HGB (test code = MCH) 30.4 pg 27.0-33.0 N MEAN CELL HGB CONCETRATION (test code = MCHC) 32.3 g/dL 33.0-37. 0 L RED CELL DISTRIBUTION WIDTH CV (test code = RDW) 14.2 % 11.5- 14.5 N RED CELL DISTRIBUTION WIDTH SD (test code = RDW-SD) 49.0 fL 37 .0-54.0 N PLATELET COUNT (test code = PLT) 273 x10 3/uL 150-400 N MEAN PLATELET VOLUME (test code = MPV) 11.2 fL 7.0-9.0 H NEUTROPHIL % (test code = NT%) 72.9 % 56.0-77.0 N IMMATURE GRANULOCYTE % (test code = IG%) 0.5 % 0.0-2.0 N LYMPHOCYTE % (test code = LY%) 16.6 % 14.0-32.0 N MONOCYTE % (test code = MO%) 7.6 % 4.8-9.0 N EOSINOPHIL % (test code = EO%) 1.8 % 0.3-3.7 N BASOPHIL % (test code = BA%) 0.6 % 0.0-2.0 N NUCLEATED RBC % (test code = NRBC%) 0.0 % 0-0 N NEUTROPHIL # (test code = NT#) 7.67 x10 3/uL 2.0-7.6 H IMMATURE GRANULOCYTE # (test code = IG#) 0.05 x10 3/uL 0.00-0.03 H LYMPHOCYTE # (test code = LY#) 1.74 x10 3/uL 1.0-3.8 N MONOCYTE # (test code = MO#) 0.80 x10 3/uL 0.1-0.8 N EOSINOPHIL # (test code = EO#) 0.19 x10 3/uL 0.0-0.2 N BASOPHIL # (test code = BA#) 0.06 x10 3/uL 0.0-0.2 N NUCLEATED RBC # (test code = NRBC#) 0.00 x10 3/uL 0.0-0.1 N MANUAL DIFF REQUIRED (test code = MDIFF) NO - US ABDOMEN [id number] 05:05:00 Name: HARMAN FERREIRA [facility] : 1970 Age/S: 48 / M [address] [facility] Unit #: [id number] Loc: [place] [address] Phys: Mark Keita MD Acct: [id number] Dis Date: Status: REG ER PHONE #: [phone] Exam Date: 07/25/2019439 FAX #: [phone] Reason: abd pain, vomiting EXAMS: CPT CODE: [id number] US ABDOMEN LTD 83590 EXAM: - US ABDOMEN LTD HISTORY: Pain COMPARISON: None available time of interpretation. TECHNIQUE: Grayscale B-mode and color Doppler sonographic images of the right upper quadrant were obtained. FINDINGS: The gallbladder is contracted. There is a small shadowing gallstone. No significant gallbladder wall thickening or pericholecystic fluid. The common bile duct is within normal limits measuring 2-3 mm. No focal liver lesion is demonstrated. The visualized right kidney, IVC, aorta and pancreas show no significant abnormalities. Limited exam. IMPRESSION: Cholelithiasis. No sonographic evidence of acute cholecystitis. at 0505 Reported and signed by: Mike Kaye MD CC: Mark Keita MD Technologist: PEDRO CRUM RT(R),RDMS,CT Trnscb Date/Time: 07/25/2019 (0505) [email or web address] Orig Print D/T: S: 07/25/2019 (6698) Probe: PAGE 1 Signed Report - CT ABD PELVIS W/O CONT 2019-07-25 05:01:00 [facility] 1970 Age/S: 48 / M [address] [facility] Unit #: [id number] Loc: [place] [address] Phys: Mark Keita MD Acct: [id number] Dis Date: Status: REG ER PHONE #: [phone] Exam Date: 07/25/2019 0330 FAX #: [phone] Reason: UPPER ABDOMINAL PAIN, VOMITING EXAMS: CPT CODE: [id number] CT ABD PELVIS W/O CONT 62152 EXAM: - CT ABD PELVIS W/O CONT HISTORY: Abdominal pain. TECHNIQUE: Axial tomograms through the abdomen and pelvis were obtained without intravenous or enteric contrast. Coronal and sagittal reformatted images are provided. This exam was performed according to our departmental dose-optimization program, which includes automated exposure control, adjustment of the mA and/or kV according to patient size and/or use of iterative reconstruction technique. COMPARISON: None available time of interpretation. FINDINGS: The visualized lung bases are clear. The kidneys are symmetric in size and appearance bilaterally. No renal or ureteral calculi are demonstrated. There is no obstructive change. The unenhanced visualized liver, spleen, pancreas, and bilateral adrenals demonstrate no significant abnormalities. There is no fluid collection or pelvic adenopathy. The unopacified bowel is unremarkable. Previous surgical changes are present in right lower quadrant bowel. The appendix is not visualized. There is no distention of the bowel. IMPRESSION: No acute abnormality. at 0501 Reported and signed by: Mike Kaye MD CC: Mark Keita MD Technologist:PEDRO CRUM RT(R),RDMS,CT CTDI: DLP: Trnscb Date/Time: 07/25/2019 (0501) [email or web address] Orig Print D/T: S: 07/25/2019 (9314) PAGE 1 Signed Report BASIC METABOLIC [id number] 03:06:00* Test Item Value Reference Range Interpretation Comments SODIUM (test code = NA) 140 mmol/L 136-145 N POTASSIUM (test code = K) 3.8 mmol/L 3.5-5.1 N CHLORIDE (test code = CL) 105 mmol/L 101-109 N CARBON DIOXIDE (test code = CO2) 29.2 mmol/L 21-32 N ANION GAP (test code = GAP) 10 mmol/L 10-20 N GLUCOSE (test code = GLU) 246 mg/dL 74-106 H BLOOD UREA NITROGEN (test code = BUN) 21 mg/dL 3-21 N GLOMERULAR FILTRATION RATE (test code = GFR) 40 mL/min >=60 Estimated GFR by using Modified MDRD formula.Chronic kidney disease is defined as either kidney damageor GFR <60 mL/min/1.73 m2 for >3 months. CREATININE (test code = CREAT) 1.82 mg/dL 0.55-1.3 H BUN/CREATININE RATIO (test code = BUN/CREA) 11.5 10-20 N CALCIUM (test code = CA) 8.1 mg/dL 8.4-10.2 L HEPATIC FUNCTION [id number] 03:06:00* Test Item Value Reference Range Interpretation Comments TOTAL PROTEIN (test code = PROT) 6.9 g/dL 6.5-8.4 N ALBUMIN (test code = ALB) 2.8 g/dL 3.4-4.8 L GLOBULIN (test code = GLOB) 4.1 G/DL 1-10 N ALBUMIN/GLOBULIN RATIO (test code = A/G) 0.68 RATIO 0.75-1.50 L BILIRUBIN TOTAL (test code = BILT) 0.30 mg/dL 0.0-1.0 N BILIRUBIN DIRECT (test code = BILD) 0.20 mg/dL 0.0-0.30 N SGOT/AST (test code = AST) 32 U/L 6-32 N SGPT/ALT (test code = ALT) 35 U/L 12-78 N N ote: Change in REFERENCE RANGE due to new reagent method. ALKALINE PHOSPHATASE TOTAL (test code = ALKP) 71 U/L 38-126 N [id number] 03:06:00* Test Item Value Reference Range Interpretation Comments LIPASE (test code = LIP) 287 U/L 128-270 H [id number] 03:06:00* Test Item Value Reference Range Interpretation Comments TROPONIN-I (test code = TROPI) <0.015 ng/mL 0.00-0.056 N - XR CHEST 1 [id number] 02:58:00 [facility] 1970 Age/S:48 /M [address] [facility] Unit#:[id number] Loc: [place] [address] Phys: Mark Keita MD Dis Date: PHONE #: [phone] Status: PRE ER FAX #: [phone] Exam Date: 07/25/2019 Reason: CHEST PAIN EXAMS: CPT CODE: [id number] XR CHEST 1 V 28494 EXAM: - XR CHEST 1 V HISTORY: Chest pain. COMPARISON: February 25, 2017. FINDINGS: Single AP view of the chest is provided. Heart size and vascularity are within normal limits. The lungs are clear of focal consolidation. No effusion, pneumothorax, or acute osseous abnormality. IMPRESSION: No radiographic evidence of acute cardiopulmonary process. at 0258 Reported and signed by: Mike Kaye MD CC: Mark Keita MD Technologist: PEDRO CRUM RT(R),RDMS,CT Trnscrpt Data: 07/25/2019 (0258) [email or web address] Orig Print D/T: S: 07/25/2019 (0302) PAGE 1 Signed Report CBC W/O [id number] 02:47:00* Test Item Value Reference Range Interpretation Comments WHITE BLOOD CELL (test code = WBC) 9.6 K/mm3 4.5-12.5 N RED BLOOD CELL (test code = RBC) 4.84 mill/mm3 4.0-5.8 N HEMOGLOBIN (test code = HGB) 15.1 gram/dL 13.0-17.5 N HEMATOCRIT (test code = HCT) 44.8 % 42.0-52.0 N MEAN CELL VOLUME (test code = MCV) 92.6 fL 80-98 N MEAN CELL HGB (test code = MCH) 31.2 picogram 27.0-33.0 N MEAN CELL HGB CONCETRATION (test code = MCHC) 33.7 gram/dL 33.0-36. 0 N RED CELL DISTRIBUTION WIDTH (test code = RDW) 13.8 % 11.6-16. 2 N RED CELL DISTRIBUTION WIDTH SD (test code = RDW-SD) 48.1 fL 37 .0-51.0 N PLATELET COUNT (test code = PLT) 284 K/mm3 150-450 N MEAN PLATELET VOLUME (test code = MPV) 11.1 fL 6.7-11.0 H Bedside [id number] 05:53:00* Test Item Value Reference Range Interpretation Comments Bedside Glucose (test code = 44626-6) 189 70-120 H Meter ID: [id number] Plains Memorial Hospitalodium Level 2017-07-19 01:52:00* Test Item Value Reference Range Interpretation Comments Sodium Level (test code = 2951-2) 136 136-145 [facility]assium [id number] 01:52:00* Test Item Value Reference Range Interpretation Comments Potassium Level (test code = 2823-3) 4.1 3.5-5.1 [facility]kinChloride [id number] 01:52:00* Test Item Value Reference Range Interpretation Comments Chloride Level (test code = 2075-0) 103 98-107 [facility]kinAnion [id number] 01:52:00* Test Item Value Reference Range Interpretation Comments Anion Gap (test code = 77922-6) 14.1 8-16 [facility]kinMagnesium [id number] 01:52:00* Test Item Value Reference Range Interpretation Comments Magnesium Level (test code = 97462-9) 2.1 1.3-2.1 [facility]kinCreatine Kinase [id number] 01:47:00* Test Item Value Reference Range Interpretation Comments Creatine Kinase MB (test code = 51708-3) 2.70 0-5.0 [facility]kinTroponin [id number] 01:47:00* Test Item Value Reference Range Interpretation Comments Troponin I (test code = UZI6057) -0.001 0-0.300 [facility] L[facility]kinCarbon Dioxide [id number] 01:40:00* Test Item Value Reference Range Interpretation Comments Carbon Dioxide Level (test code = 2028-9) 24 22-29 [facility]kinBlood Urea Redjfvhr6085-79-25 01:40:00* Test Item Value Reference Range Interpretation Comments Blood Urea Nitrogen (test code = 3094-0) 23 7- [facility]kinCreatinine2018-06-01 01:40:00* Test Item Value Reference Range Interpretation Comments Creatinine (test code = 2160-0) 1.41 0.72-1.[address] [facility] LufkinBUN/Creatinine [id number] 01:40:00* Test Item Value Reference Range Interpretation Comments BUN/Creatinine Ratio (test code = 3097-3) 16 6-25 [facility] LufkinEstimat Glomerular Filtration Rate 2017-07-19 01:40:00* Test Item Value Reference Range Interpretation Comments Estimat Glomerular Filtration Rate (test code = 42969-1) 55 >60 L Ranges were taken from the National Kidney Disease Education Program and the [facility] Foundation literature.Reference ranges:60 or greater: Mgojkc44-14 ( for 3 consecutive months): Chronic kidney disease 15 or less: Kidney failureSt. Luke's Health – Memorial LufkinGlucose Aeaff3827-87-85 01:40:00* Test Item Value Reference Range Interpretation Comments Glucose Level (test code = TKS4479) 267 74-[address] [facility] LufkinCalcium Zuygy4231-27-68 01:40:00* Test Item Value Reference Range Interpretation Comments Calcium Level (test code = 37145-5) 9.3 8.4-10.2 [facility] LufkinTotal Ytludxoyg7098-18-95 01:40:00* Test Item Value Reference Range Interpretation Comments Total Bilirubin (test code = 1975-2) 0.3 0.2-1.2 [facility] LufkinAspartate Amino Transf (AST/SGOT) 2017-07-19 01:40:00* Test Item Value Reference Range Interpretation Comments Aspartate Amino Transf (AST/SGOT) (test code = Aspartate Amino Transf (AST/SGOT)) 17 5-34 [facility]kinAlanine Aminotransferase (ALT/SGPT) 2017-07-19 01:40:00* Test Item Value Reference Range Interpretation Comments Alanine Aminotransferase (ALT/SGPT) (test code = 1742-6) 22 0-55 [facility] LufkinTotal [id number] 01:40:00* Test Item Value Reference Range Interpretation Comments Total Protein (test code = 2885-2) 6.6 6.5-8.1 [facility] Memorial LufkinAlbumin2018-06-01 01:40:00* Test Item Value Reference Range Interpretation Comments Albumin (test code = 1751-7) 3.0 3.5-5.[address] [facility] LufkinGlobulin2018-06-01 01:40:00* Test Item Value Reference Range Interpretation Comments Globulin (test code = 39552-1) 3.6 2.3-3.[address] [facility] LufkinAlbumin/Globulin Fovam2523-02-16 01:40:00 * Test Item Value Reference Range Interpretation Comments Albumin/Globulin Ratio (test code = 1759-0) 0.8 0.8-2.0 [facility] LufkinAlkaline Buhdvtypafw7084-35-16 01:40:00* Test Item Value Reference Range Interpretation Comments Alkaline Phosphatase (test code = 6768-6) 71 40-150 [facility] LufkinCreatine [id number] 01:40:00* Test Item Value Reference Range Interpretation Comments Creatine Kinase (test code = 2157-6) 217 30-[address] [facility] Memorial LufkinVenous Blood [id number] 01:34:00* Test Item Value Reference Range Interpretation Comments Venous Blood pH (test code = Venous Blood pH) 7.472 7.35-7.[address] [facility] Memorial LufkinVenous Blood Partial Pressure CO2 2017-07-19 01:34:00* Test Item Value Reference Range Interpretation Comments Venous Blood Partial Pressure CO2 (test code = Venous Blood Partial Pressure CO2) 37.9 44-[address] [facility] Memorial LufkinVenous Blood Partial Pressure O2 2017-07-19 01:34:00* Test Item Value Reference Range Interpretation Comments Venous Blood Partial Pressure O2 (test code = Venous B lood Partial Pressure O2) 42 40-[address] [facility] LufkinVenous Blood [id number] 01:34:00* Test Item Value Reference Range Interpretation Comments Venous Blood HCO3 (test code = Venous Blood HCO3) 27.7 21-[address] [facility] Memorial LufkinVenous Blood Total Carbon Dioxide 2017-07-19 01:34:00* Test Item Value Reference Range Interpretation Comments Venous Blood Total Carbon Dioxide (test code = Venous Blood Total Carbon Dioxide) 29 [facility] Blood Base Mqzxzq4420-02-25 01:34:00* Test Item Value Reference Range Interpretation Comments Venous Blood Base Excess (test code = Venous Blood Base Excess) 4 [facility] Memorial LufkinVenous Blood Oxygen Nlmnwtogir9540-08-68 01:34:00* Test Item Value Reference Range Interpretation Comments Venous Blood Oxygen Saturation (test code = Venous Blood Oxy gen Saturation) 80 [facility] Memorial LufkinFiO22018-06-01 01:34:00* Test Item Value Reference Range Interpretation Comments FiO2 (test code = FiO2) 21 MIXED VENOUS RESULTS WHILE ON ROOM AIRSt. Luke's Health – [facility] Prothrombin [id number] 01:31:00* Test Item Value Reference Range Interpretation Comments Prothrombin Time (test code = 5902-2) 12.2 11.9-14.5 [facility] LufkinProthromb Time International Ratio 2017-07-19 01:31:00* Test Item Value Reference Range Interpretation Comments Prothromb Time International Ratio (test code = 6301-6) 0.98 Oral Anticoagulant Therapy INR Values:1. Low Intensity Therapy 1.5 - 2.02 . Moderate Intensity Therapy 2.0 - 3.03. High Intensity Therapy(1) 2.5 - 3. 54. High Intensity Therapy(2) 3.0 - 4.05. Panic Value INR > 5.0 [facility] Memorial LufkinActivated Partial Thromboplast Time 2017-07-19 01:31:00* Test Item Value Reference Range Interpretation Comments Activated Partial Thromboplast Time (test code = 46056-7) 31.0 23.8-35.5 [facility] LufkinWhite Blood [id number] 01:20:00* Test Item Value Reference Range Interpretation Comments White Blood Count (test code = 6690-2) 9.58 4.8-10.8 [facility] LufkinRed Blood Sqhsh6993-00-77 01:20:00* Test Item Value Reference Range Interpretation Comments Red Blood Count (test code = 789-8) 5.25 4.3-5.7 [facility] LufkinHemoglobin2018-06-01 01:20:00* Test Item Value Reference Range Interpretation Comments Hemoglobin (test code = 03321-6) 15.0 14.0-18.0 [facility] LufkinHematocrit2018-06-01 01:20:00* Test Item Value Reference Range Interpretation Comments Hematocrit (test code = 4544-3) 45.4 38.2-49.6 [facility] LufkinMean Corpuscular Zeqjdy0303-33-19 01:20:00* Test Item Value Reference Range Interpretation Comments Mean Corpuscular Volume (test code = 787-2) 86.5 81-99 [facility] LufkinMean Corpuscular Fcskdjwsiy7720-18-70 01:20:00* Test Item Value Reference Range Interpretation Comments Mean Corpuscular Hemoglobin (test code = 785-6) 28.6 28-32 [facility] LufkinMean Corpuscular Hemoglobin Concent 2017-07-19 01:20:00* Test Item Value Reference Range Interpretation Comments Mean Corpuscular Hemoglobin Concent (test code = 786-4) 33.0 31-35 [facility] LufkinRed Cell Distribution [id number] 01:20:00* Test Item Value Reference Range Interpretation Comments Red Cell Distribution Width (test code = 15789-1) 14.4 11.7 -14.4 [facility] Memorial LufkinPlatelet Wtbsm3477-21-24 01:20:00* Test Item Value Reference Range Interpretation Comments Platelet Count (test code = 777-3) 320 140-360 [facility] LufkinNeutrophils (%) (Auto)2017-07-19 01:20:00 * Test Item Value Reference Range Interpretation Comments Neutrophils (%) (Auto) (test code = 21287-0) 77.0 38.7-80.0 [facility] LufkinLymphocytes (%) (Auto)2017-07-19 01:20:00 * Test Item Value Reference Range Interpretation Comments Lymphocytes (%) (Auto) (test code = 736-9) 14.7 18.0-39.[address] [facility] LufkinMonocytes (%) (Auto)2017-07-19 01:20:00* Test Item Value Reference Range Interpretation Comments Monocytes (%) (Auto) (test code = 5905-5) 6.4 4.4-11.3 [facility]kinEosinophils (%) (Auto)2017-07-19 01:20:00 * Test Item Value Reference Range Interpretation Comments Eosinophils (%) (Auto) (test code = 713-8) 1.1 0.0-6.0 [facility]kinBasophils (%) (Auto)2017-07-19 01:20:00* Test Item Value Reference Range Interpretation Comments Basophils (%) (Auto) (test code = 706-2) 0.5 0.0-1.0 [facility] LufkinIM GRANULOCYTES %2017-07-19 01:20:00* Test Item Value Reference Range Interpretation Comments IM GRANULOCYTES % (test code = IM GRANULOCYTES %) 0.3 0.0- 1.0 [facility]kinNeutrophils # (Auto)2017-07-19 01:20:00* Test Item Value Reference Range Interpretation Comments Neutrophils # (Auto) (test code = 751-8) 7.4 2.1-6.[address] [facility] LufkinLymphocytes # (Auto)2017-07-19 01:20:00* Test Item Value Reference Range Interpretation Comments Lymphocytes # (Auto) (test code = 05211-4) 1.4 1.0-3.2 [facility]kinMonocytes # (Auto)2017-07-19 01:20:00* Test Item Value Reference Range Interpretation Comments Monocytes # (Auto) (test code = 742-7) 0.6 0.2-0.8 [facility]kinEosinophils # (Auto)2017-07-19 01:20:00* Test Item Value Reference Range Interpretation Comments Eosinophils # (Auto) (test code = 711-2) 0.1 0.0-0.4 [facility]kinBasophils # (Auto)2017-07-19 01:20:00* Test Item Value Reference Range Interpretation Comments Basophils # (Auto) (test code = 704-7) 0.1 0.0-0.1 [facility] LufkinAbsolute Immature Granulocyte (auto 2017-07-19 01:20:00* Test Item Value Reference Range Interpretation Comments Absolute Immature Granulocyte (auto (samreen t code = Absolute Immature Granulocyte (auto) 0.03 0-0.1 [facility] Memorial LufkinCHEST SINGLE (PORTABLE) [facility] [address] [place] [address] Patient Name: HARMAN FERREIRA MR #: [id number] : 1970 Age/Sex: 46/M Req #: [id number] Adm Physician: Ordered by: OSCAR ENGLISH MD Report #: [id number] Location: ER Room/Bed: Procedure: [id number] DX/CHEST SINGLE (PORTABLE) Ex am Date: 07/19/17 Exam Time: 0105 REPORT STATUS : Signed CHEST SINGLE (PORTABLE), 07/19/2017 12:13 AM Technique: CHEST SIN GLE (PORTABLE) Comparison: None available. Clinical history: S ELEV BG S 2 [id number] S 0105 Findings: See Impression Impression: 1. Mildly enl arged cardiac silhouette, accentuated by portable technique. 2. No consolidati on or edema. 3. No pleural effusion or pneumothorax. Signed by: Dr Jimenez Sanches MD on 07/19/2017 1:36 AM Dictated By: JIMENEZ SANCHES MD Electron ically Signed By: JIMENEZ SANCHES MD on 07/19/17135 Transcribed By: TRACY metz 07/19/17135 COPY TO: OSCAR ENGLISH MD
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
[2019-10-14 18:24] LABS: ALBUMIN/GLOBULIN RATIO 0.8 (0.8-2.0); ANION GAP 15.8 mmol/L (8-16); CALCIUM 8.6 mg/dL (8.4-10.2); CREATININE, SERUM 1.47 mg/dL (0.72-1.25); POTASSIUM 3.8 mmol/L (3.5-5.1)
--- NOTE | 2019-10-14 18:24 | Diagnostic Imaging Report ---
EXAMINATION: CHEST SINGLE (PORTABLE) INDICATION: Chest pain COMPARISON: Chest x-ray on 07/19/2017 FINDINGS: TUBES and LINES: None. LUNGS: Normal lung volumes. Lungs are clear. No consolidations. PLEURA: No pleural effusion or pneumothorax. HEART AND MEDIASTINUM: The cardiomediastinal silhouette is unremarkable. BONES AND SOFT TISSUES: No acute osseous lesion. Soft tissues are unremarkable. UPPER ABDOMEN: No free air under the diaphragm. IMPRESSION: No acute thoracic radiographic abnormality. Signed by: Lilly Myers MD on 10/14/2019 6:21 PM
--- NOTE | 2019-10-14 18:53 | NUR ---
report to Johnnie KOEHLER
[2019-10-14 21:03] VITALS: BP 124/80
== END 2019-10-14 21:04 | disposition home or self-care (01) ==
LOC: ER 18:05
DX: R07.9 Chest pain, unspecified (principal); R11.2 Nausea with vomiting, unspecified; I10 Essential (primary) hypertension; E10.9 Type 1 diabetes mellitus without complications; F41.9 Anxiety disorder, unspecified; K21.9 Gastro-esophageal reflux disease without esophagitis
CPT/HCPCS: 36415; 71045; 80053; 83690; 84484; 85025; 93005; 99284

== ENCOUNTER → 2019-10-19 | Day surgery (SDC) | payer OTHER ==
[2019-10-12 14:12] LABS: BASOPHILS # (AUTO) 0.1 (0.0-0.1); BASOPHILS % 0.6 % (0.0-1.0); EOSINOPHILS # (AUTO) 0.3 (0.0-0.4); EOSINOPHILS % 3.6 % (0.0-6.0); HEMATOCRIT 39.8 % (38.2-49.6); HEMOGLOBIN 12.8 g/dL (14.0-18.0); LYMPHOCYTES # (AUTO) 1.9 (1.0-3.2); LYMPHOCYTES % 19.9 % (18.0-39.1); MEAN CORPUSCULAR HEMOGLOBIN 29.1 pg (28-32); MEAN CORPUSCULAR HGB CONC 32.2 g/dL (31-35); MEAN CORPUSCULAR VOLUME 90.5 fL (81-99); MONOCYTES # (AUTO) 0.7 (0.2-0.8); MONOCYTES % 7.6 % (4.4-11.3); NEUTROPHILS # (AUTO) 6.3 (2.1-6.9); NEUTROPHILS % 67.9 % (38.7-80.0); PLATELET COUNT 305 x10e3/uL (140-360)
[2019-10-12 14:22] LABS: INR 0.9; PROTHROMBIN TIME 12.6 seconds (11.9-14.5)
[2019-10-12 14:29] LABS: ALBUMIN/GLOBULIN RATIO 0.8 (0.8-2.0); ANION GAP 12.4 mmol/L (8-16); CALCIUM 8.3 mg/dL (8.4-10.2); CREATININE, SERUM 1.48 mg/dL (0.72-1.25); POTASSIUM 4.4 mmol/L (3.5-5.1)
[2019-10-19] VITALS (12 sets, daily range): BP systolic 116–157; BP diastolic 74–97
[~2019-10-19] VITALS: Ht 170.2 cm; Wt 106.1 kg
[~2019-10-19] MED LIST changes: +ADENOSINE 3MG/1ML 30ML VIAL ONE; +CLOPIDOGREL BISULFATE 75 MG TAB ONE; +FENTANYL CITRATE/PF 100MCG/2 ML INJ ONE; +HEPARIN SOD/SOD CHLORIDE 1,000 ML ONE; +IOPAMIDOL 370 MG/ML 200 ML INFUS..BTL INJ ONE; +LIDOCAINE HCL 2% LOCAL 20 ML VIAL ONE; +MIDAZOLAM HCL 2 MG/2 ML VIAL ONE; +SODIUM CHLORIDE 0.9% 1000ML 1,000 ML ONE; +SODIUM CHLORIDE 0.9% 50ML 50 ML ONE; +VERAPAMIL HCL 2.5 MG/ML 2 ML VIAL ONE
--- NOTE | 2019-10-19 18:14 | Operative Report ---
DATE OF PROCEDURE: SURGEON: Evan Ramos DO PROCEDURE PERFORMED: 1. Conscious sedation, 1 hour. 2. Selective coronary angiography x2. 3. Left heart catheterization. 4. Fractional flow reserve measurement of the left main and left anterior descending coronary artery. 5. Intravascular ultrasound of the left main and left anterior descending coronary artery. PREPROCEDURE DIAGNOSIS: Abnormal stress test with no coronary artery disease. POSTPROCEDURE DIAGNOSIS: Coronary artery disease. ESTIMATED BLOOD LOSS: Less than 20 mL. SPECIMENS REMOVED: None. PROCEDURE IN DETAIL: After informed consent was obtained, the patient was brought to the cardiac catheterization laboratory in a fasting and nonsedated state. Bilateral groins and right wrist were prepped and draped in the usual sterile fashion. A 2% lidocaine was infiltrated over the right anterior groin for local anesthesia. The patient received fentanyl and midazolam administered by the botany laboratory assistant nurse and his neurologic and physiologic status was monitored by myself and botany laboratory assistant staff for 1 hour. Using micropuncture needle, the right radial artery was accessed via modified Seldinger technique and a 5/6 Slender sheath was placed. Next, diagnostic selective angiography was performed using a TIG-4 catheter. This was also used into the left ventricle for hemodynamic measurements. Angiographic images revealed a distal left main stenosis extending into the left anterior descending coronary artery. Decision was made to further interrogate this lesion. The left main was then cannulated with a 6-[place] XB LAD three guide catheter. The patient received additional heparin for therapeutic anticoagulation. Next, the lesion was crossed with a Runthrough wire and intravascular ultrasound was performed. Next, lesion was then crossed with a comment FFR wire and patient lowest FFR reading was 0.79. The patient tolerated the procedure well. No immediate complications. Intervention was not performed due to a significant left main stenosis in a diabetic patient. The patient tolerated the procedure well, no immediate complications and was transferred back to his room in stable condition. PROCEDURE FINDINGS: 1. The distal left main has a 60% to 70% angiographic stenosis. The FFR was 0.79. 2. Left anterior descending coronary has an ostial 70% stenosis and is patent distally. 3. Left circumflex coronary provides two obtuse marginal vessels with luminal irregularities. 4. Right coronary is dominant vessel and provides posterior descending coronary artery with only luminal irregularities present. 5. Left ventricular end-diastolic pressure is 5-10 mmHg. No aortic valve gradient present upon pullback. IMPRESSION: Left main and left anterior descending coronary artery stenosis. RECOMMENDATIONS: The patient will be evaluated by CV surgery for bypass surgery versus high-risk PCI. DO INGRID Lindsay/MODL /[id number]
== END | disposition home or self-care (01) ==
LOC: CATH LAB 08:28
PROVIDERS: ATTEND Internal Medicine Cardiovascular Disease
DX: I25.10 Atherosclerotic heart disease of native coronary artery without angina pectoris (principal); R94.39 Abnormal result of other cardiovascular function study; I10 Essential (primary) hypertension; E78.5 Hyperlipidemia, unspecified; E11.9 Type 2 diabetes mellitus without complications; Z01.812 Encounter for preprocedural laboratory examination; Z11.59 Encounter for screening for other viral diseases; Z79.4 Long term (current) use of insulin; Z68.36 Body mass index [BMI] 36.0-36.9, adult; Z82.49 Family history of ischemic heart disease and other diseases of the circulatory system; Z83.3 Family history of diabetes mellitus
CPT/HCPCS: 36415; 80053; 85025; 85610; 92978; 93458; 93571; C1753 ×2; C1887; J0153; J2001; J2250; J3010; J7030; Q9967; U0002; 99152; 99153